=== PATIENT | female | born 1980 | race Two or more races ===

== ENCOUNTER 2020-01-12 13:30 | Inpatient (IN) | payer OTHER ==
[~2020-01-12] VITALS: Ht 170.2 cm; Wt 81.2 kg
[2020-01-21] MEDS ORDERED: PRENATAL TABLE1 EAC1 PO (22:47)
[2020-01-21] MEDS ORDERED: PEPCID AC20 MG PO (22:48)
== END 2020-01-24 13:36 | disposition home or self-care (01) | DRG 807 ==
LOC: LDR 01-21 22:36 → OB/GYN 01-22 00:54
PROVIDERS: ADMIT Obstetrics & Gynecology; ATTEND Obstetrics & Gynecology
PROC: 10E0XZZ Delivery of Products of Conception, External Approach (ICD-10-PCS; principal; 2020-01-22)
PROC: 0KQM0ZZ Repair Perineum Muscle, Open Approach (ICD-10-PCS; 2020-01-22)
PROC: 4A1HXFZ Monitoring of Products of Conception, Cardiac Rhythm, External Approach (ICD-10-PCS; 2020-01-22)
PROC: 3E033VJ Introduction of Other Hormone into Peripheral Vein, Percutaneous Approach (ICD-10-PCS; 2020-01-22)
DX: O70.1 Second degree perineal laceration during delivery (principal); Z37.0 Single live birth; Z3A.38 38 weeks gestation of pregnancy